=== PATIENT | male | born 1960 | race African-American/Black ===

== ENCOUNTER → 2016-10-21 | Outpatient (CLI) | payer OTHER ==
[2016-10-21 12:12] LABS: ABSOLUTE EOSINOPHILS # (AUTO) 0.1 10^3/uL (0.0-0.6); ABSOLUTE MONOCYTES (AUTO) 0.5 10^3/uL (0.1-1.4); ABSOLUTE NEUT (AUTO) 2.9 10^3/uL (1.7-8.2); BASOPHILS % (AUTO) 0.5 % (0-2); EOSINOPHILS % (AUTO) 2.6 % (0-6); HEMOGLOBIN 11.6 g/dL (13.5-17.0); HGB HCT DIFFERENCE -1.2; MEAN CORPUSCULAR HEMOGLOBIN 29.6 pg (27.0-33.4); MEAN CORPUSCULAR HGB CONC 32.3 g/dL (32.0-36.0); MEAN CORPUSCULAR VOLUME 92 fl (80-97); MONOCYTES % (AUTO) 8.6 % (3-13); RED BLOOD COUNT 3.93 10^6/uL (4.35-5.55); RED CELL DISTRIBUTION WIDTH 13.3 % (11.5-14.0); SEGMENTED NEUTROPHILS % (AUTO) 52.3 % (42-78); WHITE BLOOD COUNT 5.5 10^3/uL (4.0-10.5)
[2016-10-21 12:36] LABS: ALANINE AMINOTRANSFERASE 32 U/L (21-72); ALKALINE PHOSPHATASE 84 U/L (38-126); ANION GAP 11 (5-19); ASPARTATE AMINO TRANSFERASE 22 U/L (17-59); BILIRUBIN,TOTAL 0.6 mg/dL (0.2-1.3); BLOOD UREA NITROGEN 10 mg/dL (7-20); C-REACTIVE PROTEIN 8.6 mg/L (<10.0); CALCIUM 9.4 mg/dL (8.4-10.2); CARBON DIOXIDE 22 mmol/L (22-30); CHLORIDE 110 mmol/L (98-107); CREATININE RESULT 0.99 mg/dL (0.52-1.25); POTASSIUM 3.9 mmol/L (3.6-5.0); SODIUM 142.9 mmol/L (137-145); TOTAL PROTEIN 7.3 g/dL (6.3-8.2)
[2016-10-21 12:41] LABS: GLUCOSE 94 mg/dL (75-110)
[2016-10-21 13:02] LABS: ERYTHROCYTE SEDIMENTATION RATE 37 mm/hr (0-20)
== END ==
LOC: OD 11:34
PROVIDERS: ATTEND Orthopaedic Surgery
DX: T84.50XA Infection and inflammatory reaction due to unspecified internal joint prosthesis, initial encounter (principal); X58.XXXA Exposure to other specified factors, initial encounter; Y93.9 Activity, unspecified; Y92.9 Unspecified place or not applicable
CPT/HCPCS: 36415; 80053; 85025; 85652; 86140

== ENCOUNTER → 2016-10-31 | Outpatient (CLI) | payer OTHER | LOC: RAD 08:40 | PROVIDERS: ATTEND Orthopaedic Surgery | DX: Z96.642 Presence of left artificial hip joint (principal) | CPT/HCPCS: 78315; A9503; Q9969 ==

== ENCOUNTER 2018-08-15 08:51 | Inpatient (IN) | payer OTHER ==
[2018-08-15] MEDS ORDERED: PANTOPRAZOLE SODIUM 40 MG VIAL IV ONE (09:12)
[2018-08-15] MEDS ORDERED: PANTOPRAZOLE SODIUM 40 MG VIAL IV PRN (09:14)
[2018-08-15] MEDS ORDERED: NORMAL SALINE 1000 ML 1,000 ML IV ONE (09:17)
[2018-08-15 09:31] LABS: ABSOLUTE BASOPHILS # (AUTO) 0.1 10^3/uL (0.0-0.2); ABSOLUTE EOSINOPHILS # (AUTO) 0.1 10^3/uL (0.0-0.6); ABSOLUTE LYMPHOCYTES (AUTO) 1.6 10^3/uL (0.5-4.7); ABSOLUTE MONOCYTES (AUTO) 0.6 10^3/uL (0.1-1.4); ABSOLUTE NEUT (AUTO) 6.4 10^3/uL (1.7-8.2); BASOPHILS % (AUTO) 0.7 % (0-2); EOSINOPHILS % (AUTO) 1.1 % (0-6); HEMATOCRIT 32.6 % (37.9-51.0); MEAN CORPUSCULAR HEMOGLOBIN 30.6 pg (27.0-33.4); MEAN CORPUSCULAR HGB CONC 33.6 g/dL (32.0-36.0); MEAN CORPUSCULAR VOLUME 91 fl (80-97); MONOCYTES % (AUTO) 7.3 % (3-13); PLATELET COUNT 297 10^3/uL (150-450); RED BLOOD COUNT 3.58 10^6/uL (4.35-5.55); RED CELL DISTRIBUTION WIDTH 13.2 % (11.5-14.0); SEGMENTED NEUTROPHILS % (AUTO) 72.9 % (42-78); TOTAL CELLS COUNTED % (AUTO) 100 %; WHITE BLOOD COUNT 8.7 10^3/uL (4.0-10.5)
[2018-08-15 09:53] LABS: ALANINE AMINOTRANSFERASE 20 U/L (21-72); ALBUMIN 3.9 g/dL (3.5-5.0); ALKALINE PHOSPHATASE 75 U/L (38-126); ANION GAP 9 (5-19); ASPARTATE AMINO TRANSFERASE 31 U/L (17-59); BILIRUBIN,DIRECT 0.3 mg/dL (0.0-0.4); BILIRUBIN,TOTAL 0.4 mg/dL (0.2-1.3); BLOOD UREA NITROGEN 30 mg/dL (7-20); CALCIUM 8.8 mg/dL (8.4-10.2); CARBON DIOXIDE 22 mmol/L (22-30); CHLORIDE 112 mmol/L (98-107); GLUCOSE 81 mg/dL (75-110); POTASSIUM 4.4 mmol/L (3.6-5.0); SODIUM 143.4 mmol/L (137-145); TOTAL PROTEIN 7.4 g/dL (6.3-8.2)
--- NOTE | 2018-08-15 10:29 | RADIOLOGY REPORT (SQ) ---
EXAM DESCRIPTION: CHEST SINGLE VIEW COMPLETED DATE/TIME: 08/15/2018 10:18 am REASON FOR STUDY: near syncope COMPARISON: 08/24/2011 EXAM PARAMETERS: NUMBER OF VIEWS: One view. TECHNIQUE: Single frontal radiographic view of the chest acquired. RADIATION DOSE: NA LIMITATIONS: None. FINDINGS: LUNGS AND PLEURA: No opacities, masses or pneumothorax. No pleural effusion. MEDIASTINUM AND HILAR STRUCTURES: No masses. Contour normal. HEART AND VASCULAR STRUCTURES: Heart normal in size. Normal vasculature. BONES: Gentle scoliosis of the thoracolumbar spine HARDWARE: Partially imaged posterior cervical fusion hardware. OTHER: No other significant finding. IMPRESSION: No acute abnormality of the lungs in AP projection. TECHNICAL DOCUMENTATION: JOB ID: [id number] [employer]- All Rights Reserved Reading location - IP/workstation name: [id number]
--- NOTE | 2018-08-15 12:30 | ER Document Report ---
ED GI Bleed / Rectal Pain - General Stated Complaint: POSSIBLE GI BLEED Time Seen by Provider: 08/15/18 09:01 Mode of Arrival: Medic Information source: Patient Notes: Patient is a 57-year-old male comes emergency room via EMS with a near syncopal episode and a possible GI bleed. Patient states he had a tooth pulled yesterday and he was up this morning getting ready to rinse with salt water and bent over when he bent over the room started to spin and got lightheaded and sweaty and he had back into sit down and states it took him a good 15 minutes to get his bearings on what was going on and for him to grain picker his phone from the bathroom and call his in the living room. He stated that the room was spinning severely. And is never felt like this before. He had a bowel movement while EMS was there the EMS reports as approximately 4-500 cc of black maroonish bowel movement. Patient has a history of migraines and has a left- sided hip replacement that was placed in 2010. 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 He is scheduled to go to [place] 25 August to have surgery to rectify the infection that is present. He also mentions that when he was in college he had a bout of ulcers in his stomach. He denies taking any NSAIDs on a regular basis and denies any alcohol abuse. He does drink on special occasions and still within moderation. TRAVEL OUTSIDE OF THE [place] IN LAST 30 DAYS: No - HPI Patient complains to provider of: Dark red bld from rectum Onset: Just prior to arrival Timing/Duration: Sudden, Better Quality of pain: No pain Pain Level: 4 Dark Stools: Maroon, Black Rectal foreign body: No Rectal pain with intercourse: No Use of: denies: Warfarin, Plavix, ASA, Lovenox, Pradaxa, NSAIDS, ETOH Associated symptoms: Fainting/dizzy/lightheade. 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 Lives with: Family Family History: Reviewed & Not Pertinent Patient has suicidal ideation: No Patient has homicidal ideation: No - Past Medical History Cardiac Medical History: Denies: Hx Atrial Fibrillation, Hx Congestive Heart Failure, Hx Coronary Artery Disease, Hx Heart Attack, Hx Hypercholesterolemia, Hx Hypertension, Hx Peripheral Vascular Disease, Hx Pulmonary Embolism, Hx Heart Murmur Pulmonary Medical History: Denies: Hx Asthma, Hx Bronchitis, Hx COPD, Hx Pneumonia, Hx Respiratory Failure, Hx Sleep Apnea, Hx Tuberculosis Neurological Medical History: Denies: Hx Cerebrovascular Accident, Hx Seizures Endocrine Medical History: Denies: Hx Graves' Disease, Hx Hyperthyroidism, Hx Hypothyroidism Renal/ Medical History: Denies: Hx Benign Prostatic Hyperplasia, Hx End Stage Renal Disease, Hx Kidney Stones, Hx Peritoneal Dialysis Malignancy Medical History: Denies Hx Leukemia, Denies Hx Lung Cancer GI Medical History: Denies: Hx Crohn's Disease, Hx Gastroesophageal Reflux Disease, Hx Hiatal Hernia, Hx Irritable Bowel, Hx Liver Failure, Hx Pancreatitis , Hx Ulcer Musculoskeletal Medical History: Reports Hx Arthritis, Denies Hx Fibromyalgia, Denies Hx Multiple Sclerosis, Denies Hx Muscular Dystrophy Psychiatric Medical History: Denies: Hx Bipolar Disorder, Hx Dementia, Hx Depression, Hx Post Traumatic Stress Disorder, Hx Schizophrenia Traumatic Medical History: Denies: Hx Fractures Infectious Medical History: Denies: Hx HIV Past Surgical History: Denies: Hx Appendectomy, Hx Bowel Surgery, Hx Cholecystectomy, Hx Colostomy, Hx Coronary Artery Bypass Graft, Hx Gastric Bypass Surgery, Hx Herniorrhaphy, Hx Pacemaker, Hx Tonsillectomy - Immunizations Hx Diphtheria, Pertussis, Tetanus Vaccination: Yes Review of Systems - Review of Systems Constitutional: No symptoms reported EENT: No symptoms reported Cardiovascular: No symptoms reported Respiratory: No symptoms reported Gastrointestinal: See HPI, Black stools Genitourinary: No symptoms reported Male Genitourinary: No symptoms reported Musculoskeletal: No symptoms reported Skin: No symptoms reported Hematologic/Lymphatic: No symptoms reported Neurological/Psychological: See HPI, Other - Near syncope -: Yes All other systems reviewed and negative Physical Exam - Vital signs Vitals: Pulse Ox 100 08/15/18 08:54 Vital signs as of my dictation and not been entered in the computer yet however the orthostatics were mostly positive with him going from's laying down supine to standing up heart rate jumping over 20 bpm and a blood pressure not as significant but still he got lightheaded and dizzy. Patient's blood pressure after getting some fluids has been around the 112 120/77 Kurt and it fluctuates again I do not have those in front of me but they are relatively stable. With him laying perfectly still and there is systolic is about 107 208 and his diastolic is been running anywhere from the 50s to the 70s. Currently as of 435 on the monitor he is running 112/78 and heart rate running at 100. Interpretation: Hypotensive - Notes Notes: PHYSICAL EXAMINATION: GENERAL: Patient is a well-nourished well-developed 57-year-old male he is in no apparent distress on physical exam today. HEAD: Atraumatic, normocephalic. EYES: Pupils equal round and reactive to light, extraocular movements intact, sclera anicteric, conjunctiva are normal. ENT: Nares patent, oropharynx clear without exudates. Moist mucous membranes. NECK: Normal range of motion, supple without lymphadenopathy LUNGS: Breath sounds clear to auscultation bilaterally and equal. No wheezes rales or rhonchi. HEART: Regular rate and rhythm without murmurs ABDOMEN: Physical exam patient's abdomen shows he has bowel sounds all 4 quads. He is for the most part nontender although he has slight amount of tenderness midepigastric to moderate ballottement. There is no tympany noted. Musculoskeletal: Normal range of motion, no pitting or edema. No cyanosis. NEUROLOGICAL Normal speech, normal gait. Normal sensory, motor exams PSYCH: Normal mood, normal affect. SKIN: Warm, Dry, normal turgor, no rashes or lesions noted. Course - Re-evaluation Re-evalutation: 08/15/18 16:39 Patient had a positive guaiac done by me sent to the lab it was positive just by looking at it on my finger. However I discussed early on the possibility the patient may need to be transferred out since we do not have GI document control supervisor here. As I was discussing this with my attending I learned that our surgeon document control supervisor tonight do upper and lower endoscopies. It was suggested that I give them a call. I contacted Dr. Solorio and explained to him the situation and he said that if I could have medical admit and consult him that he would take patient to the OR in the morning and do an upper eat EGD. It was then that I learned that patient's primary was Dr. Cruz and I called for him and Dr. Elliott was covering. I informed Dr. Peralta that patient was here primarily for a GI bleed his hemoglobin hematocrit were stable I had talked to the surgeon and he was willing to accept the patient for an upper endoscopy tomorrow here at our hospital. Dr. Elliott said that he would be happy to admit the patient if the surgeon was going to be in-house in case the patient needed emergency intervention. I recontacted the surgeon Dr. Solorio who was headed down to the emergency room to see the patient in person and discuss it with him. Afterwards he informed me that patient would go tomorrow for an upper and lower endoscopy. And he will be in house tonight in case anything happens. So we have admitted the patient to Dr. Elliott's service consult to Dr. Solorio patient is very happy with the situation. - Vital Signs Vital signs: Temp Pulse Resp BP Pulse Ox 93 8 L 112/77 99 08/15/18 09:37 08/15/18 15:01 08/15/18 15:01 08/15/18 15:01 - Laboratory Result Diagrams: 08/15/18 16:00 08/15/18 09:13 Laboratory results interpreted by me: 08/15/18 08/15/18 09:13 09:13 RBC 3.58 L Hgb 11.0 L Hct 32.6 L Chloride 112 H BUN 30 H ALT 20 L Discharge - Discharge Clinical Impression: Upper GI bleeding Condition: Stable Disposition: ADMITTED INPATIENT Admitting Provider: Anthony Unit Admitted: ICU
--- NOTE | 2018-08-15 15:46 | EKG REPORT ---
SEVERITY:- NORMAL ECG - SINUS RHYTHM : Confirmed by: Natalie Sofia MD 15-Aug-2018 15:45:19
[2018-08-15 16:14] LABS: HEMATOCRIT 31.5 % (37.9-51.0); HEMOGLOBIN 10.5 g/dL (13.5-17.0); MEAN CORPUSCULAR HEMOGLOBIN 30.2 pg (27.0-33.4); MEAN CORPUSCULAR HGB CONC 33.4 g/dL (32.0-36.0); MEAN CORPUSCULAR VOLUME 90 fl (80-97); PLATELET COUNT 280 10^3/uL (150-450); RED BLOOD COUNT 3.49 10^6/uL (4.35-5.55); RED CELL DISTRIBUTION WIDTH 13.2 % (11.5-14.0); WHITE BLOOD COUNT 8.7 10^3/uL (4.0-10.5)
[2018-08-15] MEDS: NORMAL SALINE 1000 ML 1,000 ML IV PRN (17:35)
[2018-08-15] MEDS ORDERED: BISACODYL 5 MG TABEC PO ONE (17:44)
--- NOTE | 2018-08-15 18:08 | PDOC CONSULTATION ---
Consultation Consult Date: 08/15/18 Consult reason:: GI bleeding History of Present Illness Admission Date/PCP: 08/15/18 15:12 AHSAN MORAN MD History of Present Illness: EUSEBIO CAMPOS is a 57 year old male seen at the request of Dr. Elliott. The pt has a long cardiac history, as well as an infected hip prosthesis. He was diagnosed with a gastric ulcer as a child and has taken PPI's and Zantac intermittently. He reports 2 dark, black BM's today. He denies hematemesis. No nausea, no vomiting. He reports mild colicky abdominal pain. His last colonoscopy was more than 3 years ago. He denies CP, SOB, F/C, dizziness, orthostasis, blurry vision, ZAMORA. He takes NSAID's only intermittently, approximately once per week. He denies nicotine use and excessive caffeine consumption. He drinks alcohol once or twice per year. Past Medical History Cardiac Medical History: Denies: Atrial Fibrillation, Congestive Heart Failure, Coronary Artery Disease, Myocardial Infarction, Hyperlipidema, Hypertension, Peripheral Vascular Disease, Pulmonary Embolism, Heart Murmur Pulmonary Medical History: Denies: Asthma, Bronchitis, Chronic Obstructive Pulmonary Disease (COPD), Pneumonia, Respiratory Failure, Sleep Apnea, Tuberculosis Neurological Medical History: Denies: Seizures Endocrine Medical History: Denies: Hyperthyroidism, Hypothyroidism Renal/ Medical History: Denies: End Stage Renal Disease Malignancy Medical History: Denies: Leukemia, Lung Cancer GI Medical History: Denies: Crohn's Disease, Gastroesophageal Reflux Disease, Hiatal Hernia Musculoskeltal Medical History: Reports: Arthritis Denies: Fibromyalgia Psychiatric Medical History: Denies: Bipolar Disorder, Dementia, Depression, Post Traumatic Stress Disorder Hematology: Denies: Anemia, Hemophilia, Sickle Cell Disease Infectious Medical History: Denies: HIV Past Surgical History Past Surgical History: Denies: Appendectomy, Cholecystectomy, Colostomy, Coronary Artery Bypass Graft, Gastric Bypass Surgery, Herniorrhaphy, Pacemaker, Tonsillectomy Social History Lives with: Family Smoking Status: Never Smoker Frequency of Alcohol Use: Rare - once or twice per year Hx Recreational Drug Use: No Drugs: None Hx Prescription Drug Abuse: No - Advance Directive Resuscitation Status: Full Code Family History Family History: Reviewed & Not Pertinent Parental Family History Reviewed: Yes Children Family History Reviewed: Yes Sibling(s) Family History Reviewed.: Yes Medication/Allergy Home Medications: Acetaminophen with Codeine [Tylenol with Codeine #3 Tablet] 1 each PO Q4H PRN Ibuprofen [Motrin 800 mg Tablet] 800 mg PO Q8H PRN 08/15/18 Sulfamethoxazole/Trimethoprim [Bactrim Ds Tablet] 1 each PO DAILY 08/15/18 Topiramate 1 tab PO BID 08/15/18 Allergies/Adverse Reactions: aspirin Adverse Reaction (Verified 08/15/18 09:44) Review of Systems Constitutional: ABSENT: anorexia, chills, fatigue Eyes: ABSENT: visual disturbances Ears: ABSENT: hearing changes Nose, Mouth, and Throat: ABSENT: sore throat Cardiovascular: ABSENT: chest pain, palpitations Respiratory: ABSENT: cough, dyspnea Gastrointestinal: PRESENT: abdominal pain - mild, intermittent, melena. ABSENT : hematemesis, nausea, vomiting Musculoskeletal: ABSENT: back pain Integumentary: ABSENT: pruritus, rash Neurological: ABSENT: abnormal speech, confusion, convulsions, dizziness Psychiatric: ABSENT: anxiety, depression Endocrine: ABSENT: cold intolerance, heat intolerance Hematologic/Lymphatic: ABSENT: easy bleeding, easy bruising Physical Exam Vital Signs: Temp Pulse Resp BP Pulse Ox 98.3 F 96 14 101/62 100 08/15/18 17:05 08/15/18 17:05 08/15/18 17:05 08/15/18 17:05 08/15/18 17:05 Intake & Output 08/14/18 08/15/18 08/16/18 06:59 06:59 06:59 Weight 111.4 kg General appearance: PRESENT: no acute distress Head exam: PRESENT: atraumatic, normocephalic Eye exam: PRESENT: EOMI, PERRLA. ABSENT: scleral icterus Mouth exam: ABSENT: neck supple Neck exam: ABSENT: meningismus, tenderness, thyromegaly, tracheal deviation Respiratory exam: PRESENT: clear to auscultation elliott, unlabored. ABSENT: chest wall tenderness, tachypnea, wheezes Cardiovascular exam: PRESENT: RRR Pulses: PRESENT: normal radial pulses Vascular exam: PRESENT: normal capillary refill. ABSENT: pallor GI/Abdominal exam: PRESENT: soft. ABSENT: distended, firm, guarding, rigid, tenderness Rectal exam: PRESENT: deferred Extremities exam: ABSENT: clubbing Musculoskeletal exam: ABSENT: deformity Neurological exam: PRESENT: alert, awake, oriented to person, oriented to place , oriented to time, oriented to situation, CN II-XII grossly intact Psychiatric exam: ABSENT: agitated, anxious, depressed Focused psych exam: ABSENT: delusional Skin exam: ABSENT: cyanosis, erythema, jaundice Results Laboratory Results: 08/15/18 16:00 08/15/18 16:00 WBC 8.7 RBC 3.49 L Hgb 10.5 L Hct 31.5 L MCV 90 MCH 30.2 MCHC 33.4 RDW 13.2 Plt Count 280 Impressions: Chest X-Ray 08/15/18 09:17 IMPRESSION: No acute abnormality of the lungs in AP projection. Assessment & Plan - Diagnosis (1) GI bleeding Qualifiers: GI bleed type/associated pathology: unspecified gastrointestinal hemorrhage type Qualified Code(s): K92.2 - Gastrointestinal hemorrhage, unspecified Is this a current diagnosis for this admission?: Yes - Plan Summary Plan Summary: 57 y/o M with GI bleeing. It is likely proximal, but the pt denies any hematemesis. The pt has not had a colonoscopy in >3 years. I have discussed options with the pt at length. He is hemodynamically stable at this time. he wishes to undergo EGD and colonoscopy this admission to identify the source of his anemia. This is a reasonable approach. Will perform a bowel prep tonight and plan for EGD and colonoscopy once he is clear. If life-threatening hemorrhage occurs, he may require urgent intervention. I will follow the pt closely with you.
[2018-08-15] MEDS ORDERED: POLYETHYLENE GLYCOL 3350 POWDER 17 GM/1 PACKET PO ONE (19:00)
--- NOTE | 2018-08-15 20:12 | PDOC H&P ---
History of Present Illness Admission Date/PCP: 08/15/18 15:12 ELOY MORAN MD Patient complains of: Dizziness, vertigo, altered mental status, tarry stool History of Present Illness: EUSEBIO CAMPOS is a 57 year old male of Dr Eloy Moran who was brought to the ED via EMS service with complains of dizziness, lightheadedness, vertigo like feeling and disorientation that lasted about 15 minutes and started upon his change in position in his bathroom earlier this morning. Patient reported that he was eventually able to alert his upon his recovery in the bathroom. He subsequently had a tarry/maroon like bowel movement which EMS personnel quantify as about 400-500 cc in volume. He denied any diarrhea, nausea or vomiting. Patient admitted to associated abdominal pain in his epigastric region. He admitted to use of Ibuprofen on fairly regular basis for left hip pain management. he has longstanding history of pep ulcer disease since his college years. he denied any significant alcohol ingestion or cigarette smoking. He demonstrate hypotension with tachycardia upon presentation to the ED necessitating IV fluid resuscitation. His morbidities include PUD, arthritis with infected left hip prosthesis and migraine headache. he was advised hospitalization for further evaluation and management. He was seen in consultation while in the ED by Dr. Markus Solorio, on duty surgeon, who recommended endoscopic evaluation at this facility within next 24 hours. Past Medical History Cardiac Medical History: Denies: Atrial Fibrillation, Congestive Heart Failure, Coronary Artery Disease, Myocardial Infarction, Hyperlipidema, Hypertension, Peripheral Vascular Disease, Pulmonary Embolism, Heart Murmur Pulmonary Medical History: Denies: Asthma, Bronchitis, Chronic Obstructive Pulmonary Disease (COPD), Pneumonia, Respiratory Failure, Sleep Apnea, Tuberculosis Neurological Medical History: Denies: Seizures Endocrine Medical History: Denies: Hyperthyroidism, Hypothyroidism Renal/ Medical History: Denies: End Stage Renal Disease Malignancy Medical History: Denies: Leukemia, Lung Cancer GI Medical History: Denies: Crohn's Disease, Gastroesophageal Reflux Disease, Hiatal Hernia Musculoskeltal Medical History: Reports: Arthritis Denies: Fibromyalgia Psychiatric Medical History: Denies: Bipolar Disorder, Dementia, Depression, Post Traumatic Stress Disorder Hematology: Denies: Anemia, Hemophilia, Sickle Cell Disease Infectious Medical History: Denies: HIV Past Surgical History Past Surgical History: Denies: Appendectomy, Cholecystectomy, Colostomy, Coronary Artery Bypass Graft, Gastric Bypass Surgery, Herniorrhaphy, Pacemaker, Tonsillectomy Social History Lives with: Family Smoking Status: Never Smoker Frequency of Alcohol Use: Rare - once or twice per year Hx Recreational Drug Use: No Drugs: None Hx Prescription Drug Abuse: No - Advance Directive Resuscitation Status: Full Code Family History Family History: Reviewed & Not Pertinent Parental Family History Reviewed: Yes Children Family History Reviewed: Yes Sibling(s) Family History Reviewed.: Yes Medication/Allergy Home Medications: Acetaminophen with Codeine [Tylenol with Codeine #3 Tablet] 1 each PO Q4H PRN Ibuprofen [Motrin 800 mg Tablet] 800 mg PO Q8H PRN 08/15/18 Sulfamethoxazole/Trimethoprim [Bactrim Ds Tablet] 1 each PO DAILY 08/15/18 Topiramate 1 tab PO BID 08/15/18 Allergies/Adverse Reactions: aspirin Adverse Reaction (Verified 08/15/18 09:44) Review of Systems Constitutional: ABSENT: chills, fever(s), headache(s), weight gain, weight loss Eyes: ABSENT: visual disturbances Ears: ABSENT: hearing changes Nose, Mouth, and Throat: ABSENT: as per HPI, headache(s), mouth pain, sore throat, vertigo, other Cardiovascular: ABSENT: chest pain, dyspnea on exertion, edema, orthropnea, palpitations Respiratory: ABSENT: cough, hemoptysis Gastrointestinal: PRESENT: abdominal pain - epigastric region, melena Genitourinary: ABSENT: dysuria, hematuria Musculoskeletal: ABSENT: joint swelling Integumentary: ABSENT: rash, wounds Neurological: ABSENT: abnormal gait, abnormal speech, confusion, dizziness, focal weakness, syncope Psychiatric: ABSENT: anxiety, depression, homidical ideation, suicidal ideation Endocrine: ABSENT: cold intolerance, heat intolerance, polydipsia, polyuria Hematologic/Lymphatic: ABSENT: easy bleeding, easy bruising, lymphadenopathy Allergic/Immunologic: ABSENT: seasonal rhinorrhea Physical Exam Vital Signs: Temp Pulse Resp BP Pulse Ox 98.3 F 96 21 H 112/81 100 08/15/18 17:05 08/15/18 17:05 08/15/18 18:08 08/15/18 18:08 08/15/18 18:08 Intake & Output 08/14/18 08/15/18 08/16/18 06:59 06:59 06:59 Weight 111.4 kg General appearance: PRESENT: no acute distress Head exam: PRESENT: atraumatic, normocephalic Eye exam: PRESENT: conjunctiva pink, EOMI, PERRLA. ABSENT: scleral icterus Ear exam: PRESENT: normal external ear exam Mouth exam: PRESENT: moist Neck exam: PRESENT: full ROM. ABSENT: carotid bruit, JVD, lymphadenopathy, thyromegaly Respiratory exam: PRESENT: clear to auscultation elliott Cardiovascular exam: PRESENT: RRR. ABSENT: diastolic murmur, rubs, systolic murmur Pulses: PRESENT: normal dorsalis pedis pul, +2 pedal pulses bilateral GI/Abdominal exam: PRESENT: normal bowel sounds, soft, tenderness - epigastric region to deep palpation. ABSENT: distended, guarding, mass, organolmegaly, rebound Rectal exam: PRESENT: heme (+) stool Extremities exam: ABSENT: pedal edema Musculoskeletal exam: PRESENT: deformity - related to multiple joint involvement with arthritis Neurological exam: PRESENT: alert, awake, oriented to person, oriented to place , oriented to time, oriented to situation, CN II-XII grossly intact. ABSENT: motor sensory deficit Psychiatric exam: PRESENT: appropriate affect, normal mood. ABSENT: homicidal ideation, suicidal ideation Skin exam: PRESENT: dry, intact, warm. ABSENT: cyanosis, rash Results Laboratory Results: 08/15/18 16:00 08/15/18 16:00 WBC 8.7 RBC 3.49 L Hgb 10.5 L Hct 31.5 L MCV 90 MCH 30.2 MCHC 33.4 RDW 13.2 Plt Count 280 Impressions: Chest X-Ray 08/15/18 09:17 IMPRESSION: No acute abnormality of the lungs in AP projection. Assessment & Plan - Diagnosis (1) GI bleeding Qualifiers: GI bleed type/associated pathology: unspecified gastrointestinal hemorrhage type Qualified Code(s): K92.2 - Gastrointestinal hemorrhage, unspecified Is this a current diagnosis for this admission?: Yes Plan: Admit to ICU. Maintain on IV Protonix 40 mg [id number] after completion of initial bolus of 80 mg x 1 dose. Monitor serial CBC for any need of PRBC transfusion. Patient is schedule for EGD and colonoscopy by Dr Solorio within next 24 hours if clinically stable for the procedure. (2) Anemia due to acute blood loss Is this a current diagnosis for this admission?: Yes Plan: Monitor CBC indices for any indication of need to transfuse blood. (3) PUD (peptic ulcer disease) Is this a current diagnosis for this admission?: Yes Plan: I had extensive discussion with patient regarding use of NSAID with his history of PUD and increase risk of bleeding as well as gastric perforation from ulcer along with other NSAID side effects include NSAID nephropathy and hypertension. Continue IV Protonix therapy pending EGD findings. (4) Postural dizziness Is this a current diagnosis for this admission?: Yes Plan: Maintain on IV saline infusion for maintain adequate blood pressure level. (5) Positional vertigo Is this a current diagnosis for this admission?: Yes Plan: Continue IV saline infusion to maintain adequate blood pressure level. His is current free of vertigo symptoms. (6) Infected prosthesis of left hip Qualifiers: Encounter type: subsequent encounter Qualified Code(s): T84.52XD - Infection and inflammatory reaction due to internal left hip prosthesis, subsequent encounter Is this a current diagnosis for this admission?: Yes Plan: We will continue on Bactrim DS 1 tablet po daily therapy as schedule preadmission. Patient is on schedule for possible left hip prosthesis removal in August, at [facility]. (7) Migraine headache Qualifiers: Migraine type: unspecified Status migrainosus presence: without status migrainosus Intractability: not intractable Qualified Code(s): G43.909 - Migraine, unspecified, not intractable, without status migrainosus Is this a current diagnosis for this admission?: Yes Plan: Continue on his preadmission Topiramate therapy upon resumption of oral feeding. - Time Time Spent: 50 to 70 Minutes Medications reviewed and adjusted accordingly: Yes Anticipated discharge: Home Within: Other - Inpatient Certification Based on my medical assessment, after consideration of the patient's comorbidities, presenting symptoms, or acuity I expect that the services needed warrant INPATIENT care.: Yes I certify that my determination is in accordance with my understanding of Medicare's requirements for reasonable and necessary INPATIENT services [42 CFR 412.3e].: Yes Medical Necessity: Need Close Monitoring Due to Risk of Patient Decompensation, Need For IV Fluids, Need For Continuous Telemetry Monitoring, Need for Surgery, Risk of Complication if Not Cared For in Hospital 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 I discuss care plan with patient and spouse at bedside and they are in agreement.
[2018-08-15 21:11] LABS: ABSOLUTE BASOPHILS # (AUTO) 0.1 10^3/uL (0.0-0.2); ABSOLUTE EOSINOPHILS # (AUTO) 0.1 10^3/uL (0.0-0.6); ABSOLUTE LYMPHOCYTES (AUTO) 3.2 10^3/uL (0.5-4.7); ABSOLUTE MONOCYTES (AUTO) 0.6 10^3/uL (0.1-1.4); ABSOLUTE NEUT (AUTO) 5.2 10^3/uL (1.7-8.2); BASOPHILS % (AUTO) 0.8 % (0-2); EOSINOPHILS % (AUTO) 1.3 % (0-6); HEMATOCRIT 31.5 % (37.9-51.0); HEMOGLOBIN 10.7 g/dL (13.5-17.0); LYMPHOCYTES % (AUTO) 34.4 % (13-45); MEAN CORPUSCULAR HEMOGLOBIN 30.7 pg (27.0-33.4); MEAN CORPUSCULAR HGB CONC 34.1 g/dL (32.0-36.0); MEAN CORPUSCULAR VOLUME 90 fl (80-97); MONOCYTES % (AUTO) 6.2 % (3-13); PLATELET COUNT 291 10^3/uL (150-450); RED CELL DISTRIBUTION WIDTH 13.3 % (11.5-14.0); SEGMENTED NEUTROPHILS % (AUTO) 57.3 % (42-78); TOTAL CELLS COUNTED % (AUTO) 100 %; WHITE BLOOD COUNT 9.2 10^3/uL (4.0-10.5)
[2018-08-16] MEDS: PANTOPRAZOLE SODIUM 40 MG VIAL IV SCH ×2 (00:15→09:14)
[2018-08-16 01:24] LABS: ABSOLUTE BASOPHILS # (AUTO) 0.1 10^3/uL (0.0-0.2); ABSOLUTE EOSINOPHILS # (AUTO) 0.1 10^3/uL (0.0-0.6); ABSOLUTE LYMPHOCYTES (AUTO) 2.7 10^3/uL (0.5-4.7); ABSOLUTE MONOCYTES (AUTO) 0.6 10^3/uL (0.1-1.4); ABSOLUTE NEUT (AUTO) 6.3 10^3/uL (1.7-8.2); BASOPHILS % (AUTO) 0.8 % (0-2); EOSINOPHILS % (AUTO) 1.3 % (0-6); HEMATOCRIT 29.7 % (37.9-51.0); HEMOGLOBIN 10.1 g/dL (13.5-17.0); LYMPHOCYTES % (AUTO) 27.5 % (13-45); MEAN CORPUSCULAR HEMOGLOBIN 30.5 pg (27.0-33.4); MEAN CORPUSCULAR HGB CONC 33.9 g/dL (32.0-36.0); MEAN CORPUSCULAR VOLUME 90 fl (80-97); MONOCYTES % (AUTO) 6.2 % (3-13); PLATELET COUNT 277 10^3/uL (150-450); RED BLOOD COUNT 3.31 10^6/uL (4.35-5.55); RED CELL DISTRIBUTION WIDTH 13.2 % (11.5-14.0); SEGMENTED NEUTROPHILS % (AUTO) 64.2 % (42-78); TOTAL CELLS COUNTED % (AUTO) 100 %; WHITE BLOOD COUNT 9.8 10^3/uL (4.0-10.5)
[2018-08-16] MEDS: NORMAL SALINE 1000 ML 1,000 ML IV PRN (05:10)
--- NOTE | 2018-08-16 08:48 | PDOC PROGRESS REPORT ---
Subjective Progress Note for:: 08/16/18 Subjective:: Feels okay. Tolerated bowel prep. Brown nonbloody output recently. No abdominal pain. Reason For Visit: GI BLEED Physical Exam Vital Signs: Temp Pulse Resp BP Pulse Ox 98.2 F 101 H 16 121/80 100 08/16/18 08:00 08/16/18 05:05 08/16/18 06:36 08/16/18 06:36 08/16/18 06:36 Intake & Output 08/15/18 08/16/18 08/17/18 06:59 06:59 06:59 Intake Total 3280 Output Total 1900 Balance 1380 Weight 110.6 kg General appearance: PRESENT: no acute distress, cooperative Respiratory exam: PRESENT: clear to auscultation elliott Cardiovascular exam: PRESENT: RRR GI/Abdominal exam: PRESENT: other - Soft, nondistended, nontender to palpation. Results Laboratory Results: 08/16/18 01:14 08/15/18 08/15/18 08/16/18 16:00 21:00 01:14 WBC 8.7 9.2 9.8 RBC 3.49 L 3.50 L 3.31 L Hgb 10.5 L 10.7 L 10.1 L Hct 31.5 L 31.5 L 29.7 L MCV 90 90 90 MCH 30.2 30.7 30.5 MCHC 33.4 34.1 33.9 RDW 13.2 13.3 13.2 Plt Count 280 291 277 Seg Neutrophils % 57.3 64.2 Lymphocytes % 34.4 27.5 Monocytes % 6.2 6.2 Eosinophils % 1.3 1.3 Basophils % 0.8 0.8 Absolute Neutrophils 5.2 6.3 Absolute Lymphocytes 3.2 2.7 Absolute Monocytes 0.6 0.6 Absolute Eosinophils 0.1 0.1 Absolute Basophils 0.1 0.1 Impressions: Chest X-Ray 08/15/18 09:17 IMPRESSION: No acute abnormality of the lungs in AP projection. Assessment & Plan - Diagnosis (1) GI bleeding Qualifiers: GI bleed type/associated pathology: unspecified gastrointestinal hemorrhage type Qualified Code(s): K92.2 - Gastrointestinal hemorrhage, unspecified Is this a current diagnosis for this admission?: Yes Plan: Appears to have stopped. Tolerated bowel prep well. Will proceed with upper and lower endoscopy. I have discussed with the patient the risk and benefits of the procedure including risk of intestinal injury and bleeding. Patient understands and agrees to proceed.
--- NOTE | 2018-08-16 10:39 | Operative Report ---
Operative Report DATE OF SURGERY: 08/16/18 PREOPERATIVE DIAGNOSIS: Gastrointestinal bleed POSTOPERATIVE DIAGNOSIS: Gastritis, duodenal ulcer. OPERATION: Esophagogastroduodenoscopy with biopsies. Colonoscopy. SURGEON: LYRIC MARIE ANESTHESIA: Moderate Sedation TISSUE REMOVED OR ALTERED: Antral biopsy for H. pylori. Gastric fundic biopsy. COMPLICATIONS: None ESTIMATED BLOOD LOSS: Minimal INTRAOPERATIVE FINDINGS: About 3 cm region of gastric fundus with mucosal thickening but no true mass. Small amount of blood overlying this region but no active bleeding. Shallow small ulcer at the junction between the first and second portion the duodenum with no visible vessel and no adherent clot. Normal -appearing colon PROCEDURE: Informed consent was obtained. Procedure was done under moderate sedation in the intensive care unit. IV sedation with Versed and fentanyl was administered. Endoscope was passed via the patient's mouth into the second portion the duodenum. At the junction of the first and second portion the duodenum there was a shallow ulcer with some mucosal edema around it but no fresh clot no visible vessel. With the edema around it I could not visualize the base of the ulcer. There was a small amount of blood around this area. The gastric mucosa appeared normal other than a 3-4 cm patch of gastric mucosal thickening in the gastric fundus with a small amount of blood around this area but no active bleeding. This area of mucosal thickening was biopsied multiple times. Grossly it was not suspicious for malignancy. Random antral biopsy was taken for H. pylori as well. The stomach was desufflated. Esophagus appeared normal. Patient was repositioned. Digital rectal exam revealed no palpable perianal masses. Endoscope was passed via the patient's anus it was fed to the cecum. There was moderate amount of brownish fluid throughout the colon which required irrigation and aspiration to obtain adequate visualization. Although the bowel prep was not perfect guide was adequate. The cecum, right colon, transverse colon, descending colon, sigmoid colon, and the rectum were all normal with no masses and no ulcerations and no bleeding. Patient tolerated procedure well with no apparent complications. Assessment: Normal-appearing colon. His episode of gastrointestinal bleeding likely due to his duodenal ulcer. With the appearance of the ulcer now I think he is at low risk for recurrent bleeding as long as we keep him on proton pump inhibitor and avoid alcohol and NSAIDs. Patient may be transferred to the floor with discharge to home if he does well with a diet today with a stable hematocrit in the morning. He needs to follow-up at [facility] next week to follow-up on his biopsy results and to make sure he is not H. pylori positive.
[2018-08-16] MEDS ORDERED: ONDANSETRON HCL INJ/PF 4 MG/2 ML SDV ONE (10:49)
[2018-08-16] MEDS ORDERED: NALOXONE HCL INJ/PF 0.4 MG/1 ML SDV ONE (10:49)
[2018-08-16] MEDS ORDERED: GLUCAGON,HUMAN RECOMB 1 MG INJ ONE (10:50)
[2018-08-16] MEDS ORDERED: FLUMAZENIL INJ 0.5 MG/5 ML VIAL ONE (10:50)
[2018-08-16] MEDS ORDERED: EPINEPHRINE INJ 1 MG/10 ML DISP.SYRIN ONE (10:50)
--- NOTE | 2018-08-16 15:35 | PDOC PROGRESS REPORT ---
Subjective Progress Note for:: 08/16/18 Subjective:: He denied any chest pain or difficulty with breathing. No nausea or vomiting. Minimal persistent epigastric region discomfort. Tolerating full liquid diet. No fever or chills. Reason For Visit: GI BLEED Physical Exam Vital Signs: Temp Pulse Resp BP Pulse Ox 98.2 F 83 15 101/65 100 08/16/18 14:00 08/16/18 10:40 08/16/18 14:00 08/16/18 13:40 08/16/18 14:00 Intake & Output 08/15/18 08/16/18 08/17/18 06:59 06:59 06:59 Intake Total 3280 400 Output Total 1900 1150 Balance 1380 -750 Weight 110.6 kg General appearance: PRESENT: no acute distress, well-developed, well-nourished Head exam: PRESENT: atraumatic, normocephalic Eye exam: PRESENT: conjunctiva pink, EOMI, PERRLA. ABSENT: scleral icterus Ear exam: PRESENT: normal external ear exam Mouth exam: PRESENT: moist Respiratory exam: PRESENT: clear to auscultation elliott Cardiovascular exam: PRESENT: RRR. ABSENT: diastolic murmur, rubs, systolic murmur Vascular exam: ABSENT: pallor GI/Abdominal exam: PRESENT: normal bowel sounds, soft, tenderness - epigastric region to deep palpation. ABSENT: distended, guarding, mass, organolmegaly, rebound Extremities exam: ABSENT: pedal edema Neurological exam: PRESENT: alert, awake, oriented to person, oriented to place , oriented to time, oriented to situation, CN II-XII grossly intact. ABSENT: motor sensory deficit Psychiatric exam: PRESENT: appropriate affect, normal mood. ABSENT: homicidal ideation, suicidal ideation Skin exam: PRESENT: dry, intact, warm. ABSENT: cyanosis, rash Results Laboratory Results: 08/16/18 01:14 08/15/18 08/15/18 08/16/18 16:00 21:00 01:14 WBC 8.7 9.2 9.8 RBC 3.49 L 3.50 L 3.31 L Hgb 10.5 L 10.7 L 10.1 L Hct 31.5 L 31.5 L 29.7 L MCV 90 90 90 MCH 30.2 30.7 30.5 MCHC 33.4 34.1 33.9 RDW 13.2 13.3 13.2 Plt Count 280 291 277 Seg Neutrophils % 57.3 64.2 Lymphocytes % 34.4 27.5 Monocytes % 6.2 6.2 Eosinophils % 1.3 1.3 Basophils % 0.8 0.8 Absolute Neutrophils 5.2 6.3 Absolute Lymphocytes 3.2 2.7 Absolute Monocytes 0.6 0.6 Absolute Eosinophils 0.1 0.1 Absolute Basophils 0.1 0.1 Impressions: Chest X-Ray 08/15/18 09:17 IMPRESSION: No acute abnormality of the lungs in AP projection. Assessment & Plan - Diagnosis (1) GI bleeding Qualifiers: GI bleed type/associated pathology: unspecified gastrointestinal hemorrhage type Qualified Code(s): K92.2 - Gastrointestinal hemorrhage, unspecified Is this a current diagnosis for this admission?: Yes (2) Anemia due to acute blood loss Is this a current diagnosis for this admission?: Yes (3) PUD (peptic ulcer disease) Is this a current diagnosis for this admission?: Yes (4) Postural dizziness Is this a current diagnosis for this admission?: Yes (5) Positional vertigo Is this a current diagnosis for this admission?: Yes (6) Infected prosthesis of left hip Qualifiers: Encounter type: subsequent encounter Qualified Code(s): T84.52XD - Infection and inflammatory reaction due to internal left hip prosthesis, subsequent encounter Is this a current diagnosis for this admission?: Yes (7) Migraine headache Qualifiers: Migraine type: unspecified Status migrainosus presence: without status migrainosus Intractability: not intractable Qualified Code(s): G43.909 - Migraine, unspecified, not intractable, without status migrainosus Is this a current diagnosis for this admission?: Yes - Time Time Spent with patient: 25-34 minutes Medications reviewed and adjusted accordingly: Yes Anticipated discharge: Home Within: Other - Inpatient Certification Based on my medical assessment, after consideration of the patient's comorbidities, presenting symptoms, or acuity I expect that the services needed warrant INPATIENT care.: Yes I certify that my determination is in accordance with my understanding of Medicare's requirements for reasonable and necessary INPATIENT services [42 CFR 412.3e].: Yes Medical Necessity: Need Close Monitoring Due to Risk of Patient Decompensation, Need For IV Fluids, Need For Continuous Telemetry Monitoring, Need for Surgery, Risk of Complication if Not Cared For in Hospital Post Hospital Care: D/C Surgery Nurse Documentation - Plan Summary Plan Summary: D/C IV protonix from tomorrow am. Start on Prevacid 30 mg po bid x 2 weeks and thereafter daily. I did discussed with him need for repeat EGD after 8 weeks of PPI treatment. follow up on biopsy report for H.pylori exclusion. Advance diet as tolerated. down grade to medical floor.
[2018-08-16] MEDS ORDERED: TOPIRAMATE PO SCH (18:00)
[2018-08-16] MEDS ORDERED: ACETAMINOPHEN 325 MG TABLET ONE (21:31)
[2018-08-16] MEDS: TOPIRAMATE 25 MG TABLET PO SCH (21:33)
[2018-08-16] MEDS ORDERED: ACETAMINOPHEN 325 MG TABLET PO PRN (21:56)
[2018-08-17] MEDS ORDERED: LANSOPRAZOLE 30 MG TAB.RAP.DR PO SCH (06:00)
[2018-08-17] MEDS: TOPIRAMATE 25 MG TABLET PO SCH (09:24)
[2018-08-17] MEDS ORDERED: SULFAMETHOXAZOLE/TRIMETHOPRIM 800-160 MG TABLET PO SCH (10:00)
[2018-08-17 11:54] VITALS: BP 110/61
--- NOTE | 2018-08-17 12:03 | PDOC PROGRESS REPORT ---
Subjective Progress Note for:: 08/17/18 Subjective:: Feels well with no problems. No blood per rectum. No melena. Tolerating a diet well. No abdominal pain. Reason For Visit: ACUTE GI BLEED, ANEMIA OF ACUTE BLOOD LOSS WITH Physical Exam Vital Signs: Temp Pulse Resp BP Pulse Ox 100.0 F 84 20 110/61 99 08/17/18 10:00 08/17/18 10:00 08/17/18 10:00 08/17/18 10:00 08/17/18 10:00 Intake & Output 08/16/18 08/17/18 08/18/18 06:59 06:59 06:59 Intake Total 3280 2200 Output Total 1900 3025 Balance 1380 -825 Weight 110.6 kg 110.9 kg General appearance: PRESENT: no acute distress, cooperative GI/Abdominal exam: PRESENT: other - Soft, nondistended, nontender to palpation. Results Laboratory Results: 08/16/18 01:14 Impressions: Chest X-Ray 08/15/18 09:17 IMPRESSION: No acute abnormality of the lungs in AP projection. Assessment & Plan - Diagnosis (1) GI bleeding Qualifiers: GI bleed type/associated pathology: unspecified gastrointestinal hemorrhage type Qualified Code(s): K92.2 - Gastrointestinal hemorrhage, unspecified Is this a current diagnosis for this admission?: Yes Plan: Due to duodenal ulcer. Pending pathology report for H. pylori. No evidence of recurrent bleed. And with the appearance on endoscopy unlikely to rebleed with appropriate medications. May discharge patient home when okay with primary physician. Discharge patient home with Prevacid twice a day. Follow-up at [facility] this week to go over the biopsy results and to arrange follow-up. I have discussed with the patient the vital importance of avoiding alcohol and NSAIDs and the importance of staying on his proton pump inhibitor.
--- NOTE | 2018-08-17 14:43 | PDOC DISCHARGE SUMMARY ---
General - Admit/Disc Date/PCP Admission Date/Primary Care Provider: 08/15/18 15:12 AHSAN MORAN MD Discharge Date: 08/17/18 - Discharge Diagnosis (1) GI bleeding Is this a current diagnosis for this admission?: Yes Summary: Due to the duodenal ulcer currently PPI twice a day for 2 weeks follow-up with the Hospital surgical for repeat endoscopy and avoid all NSAID (2) Infected prosthesis of left hip Is this a current diagnosis for this admission?: Yes Summary: This is scheduled to the [facility] for the procedures (3) Migraine headache Is this a current diagnosis for this admission?: Yes Summary: Continue Topamax (4) PUD (peptic ulcer disease) Is this a current diagnosis for this admission?: Yes Summary: Continues to PPI twice a day - Additional Information Resuscitation Status: Full Code Discharge Diet: As Tolerated, Regular Discharge Activity: Activity As Tolerated Prescriptions: Omeprazole 40 mg PO BID #60 capsule. Home Medications: Acetaminophen with Codeine [Tylenol with Codeine #3 Tablet] 1 each PO Q4H PRN Sulfamethoxazole/Trimethoprim [Bactrim Ds Tablet] 1 each PO DAILY 08/15/18 Topiramate 1 tab PO BID 08/15/18 Omeprazole 40 mg PO BID #60 capsule. 08/17/18 History of Present Illness History of Present Illness: EUSEBIO CAMPOS is a 57 year old male Patient was admitted for the GI bleed and symptomatic anemia Patient's underwent for the endoscopy and colonoscopy and found the duodenal ulcer Patient seen by the general surgery and put the patient on a PPI Hospital Course Hospital Course: Patient was admitting in the hospital for the GI bleed underwent further endoscopy and colonoscopy and the patient is found a duodenal ulcer Patient hemoglobin remained stable According to the surgery patient is discharged home with the PPI twice a day and follow outpatient also surgical Patient p.o. intake is good on discharge patient's walk in the hallway without any problems Patient also ongoing hip problems currently scheduled for the surgery at [facility] Discussed with the patient and the patient's family member at the bedside regarding the patient's current condition and all findings Avoid all NSAID Continues the PPI twice a day Follow-up [facility] in 2 weeks Follow-up in office in 1 wk Physical Exam Vital Signs: Temp Pulse Resp BP Pulse Ox 100.0 F 84 20 110/61 99 08/17/18 10:00 08/17/18 10:00 08/17/18 10:00 08/17/18 10:00 08/17/18 10:00 Intake & Output 08/16/18 08/17/18 08/18/18 06:59 06:59 06:59 Intake Total 3280 2200 400 Output Total 1900 3025 450 Balance 1380 -825 -50 Weight 110.6 kg 110.9 kg General appearance: PRESENT: no acute distress, well-developed, well-nourished Head exam: PRESENT: atraumatic, normocephalic Eye exam: PRESENT: conjunctiva pink, EOMI, PERRLA. ABSENT: scleral icterus Ear exam: PRESENT: normal external ear exam Mouth exam: PRESENT: moist, tongue midline Neck exam: PRESENT: full ROM. ABSENT: carotid bruit, JVD, lymphadenopathy, thyromegaly Respiratory exam: PRESENT: clear to auscultation ell[place]ott Cardiovascular exam: PRESENT: RRR. ABSENT: diastolic murmur, rubs, systolic murmur Pulses: PRESENT: normal dorsalis pedis pul, +2 pedal pulses bilateral Vascular exam: PRESENT: normal capillary refill GI/Abdominal exam: PRESENT: normal bowel sounds, soft. ABSENT: distended, guarding, mass, organolmegaly, rebound, tenderness Rectal exam: PRESENT: deferred Musculoskeletal exam: PRESENT: ambulatory Neurological exam: PRESENT: alert, awake, oriented to person, oriented to place , oriented to time, oriented to situation, CN II-XII grossly intact. ABSENT: motor sensory deficit Psychiatric exam: PRESENT: appropriate affect, normal mood. ABSENT: homicidal ideation, suicidal ideation Skin exam: PRESENT: dry, intact, warm. ABSENT: cyanosis, rash Results Laboratory Results: 08/16/18 01:14 Impressions: Chest X-Ray 08/15/18 09:17 IMPRESSION: No acute abnormality of the lungs in AP projection. Qualifiers - * PATIENT BEING DISCHARGED WITH ANY OF THE FOLLOWING DIAGNOSIS: No VTE patient discharged on overlapping Therapy?: Yes Plan Time Spent: Greater than 30 Minutes - Discharge home with the stable conditions follow in office in 1 week with repeat the CBC and Chem-7
== END 2018-08-17 15:32 | disposition home or self-care (01) | DRG 378 ==
LOC: ER 08:51 → EH 15:12 → ICU 17:04
PROVIDERS: ADMIT Family Medicine; ATTEND Family Medicine
PROC: 0DB78ZX Excision of Stomach, Pylorus, Via Natural or Artificial Opening Endoscopic, Diagnostic (ICD-10-PCS; principal; 2018-08-16 09:00)
PROC: 0DJD8ZZ Inspection of Lower Intestinal Tract, Via Natural or Artificial Opening Endoscopic (ICD-10-PCS; 2018-08-16 09:00)
PROC: 3E02340 Introduction of Influenza Vaccine into Muscle, Percutaneous Approach (ICD-10-PCS; 2018-08-17)
DX: K26.4 Chronic or unspecified duodenal ulcer with hemorrhage (principal); D62 Acute posthemorrhagic anemia; K29.60 Other gastritis without bleeding; G43.909 Migraine, unspecified, not intractable, without status migrainosus; T84.52XD Infection and inflammatory reaction due to internal left hip prosthesis, subsequent encounter; Z79.2 Long term (current) use of antibiotics; Z88.6 Allergy status to analgesic agent; Z23 Encounter for immunization; Z96.642 Presence of left artificial hip joint
CPT/HCPCS: 36415; 43239; 45378; 71045; 80053; 82272; 84484; 85025; 85027; 86850; 86900; 86901; 88305; 88342; 90471; 90686; 93005; 93010; 96361; 96365; 96366; 96376; 99285; G0008; J0171; J1610; J2310; J2405; J3490; J7030; S0164

== ENCOUNTER 2018-09-12 20:31 | Emergency (ER) | payer OTHER ==
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
[2018-09-12 23:01] VITALS: BP 128/91
== END 2018-09-12 23:01 | disposition home or self-care (01) ==
LOC: ER 20:31
DX: S39.012A Strain of muscle, fascia and tendon of lower back, initial encounter (principal); S29.012A Strain of muscle and tendon of back wall of thorax, initial encounter; V63.5XXA Driver of heavy transport vehicle injured in collision with car, pick-up truck or van in traffic accident, initial encounter; Y93.89 Activity, other specified; M62.830 Muscle spasm of back
CPT/HCPCS: 72070; 72110; 99284

== ENCOUNTER 2018-11-16 02:45 | Emergency (ER) | payer OTHER ==
[2018-11-16 03:39] LABS: ABSOLUTE LYMPHOCYTES (AUTO) 0.7 10^3/uL (0.5-4.7); ABSOLUTE MONOCYTES (AUTO) 0.6 10^3/uL (0.1-1.4); ABSOLUTE NEUT (AUTO) 8.4 10^3/uL (1.7-8.2); BASOPHILS % (AUTO) 0.3 % (0-2); HEMATOCRIT 35.1 % (37.9-51.0); HEMOGLOBIN 11.8 g/dL (13.5-17.0); LYMPHOCYTES % (AUTO) 7.6 % (13-45); MEAN CORPUSCULAR HGB CONC 33.6 g/dL (32.0-36.0); MEAN CORPUSCULAR VOLUME 86 fl (80-97); MONOCYTES % (AUTO) 6.5 % (3-13); PLATELET COUNT 264 10^3/uL (150-450); RED BLOOD COUNT 4.07 10^6/uL (4.35-5.55); RED CELL DISTRIBUTION WIDTH 16.3 % (11.5-14.0); SEGMENTED NEUTROPHILS % (AUTO) 85.6 % (42-78); TOTAL CELLS COUNTED % (AUTO) 100 %; WHITE BLOOD COUNT 9.7 10^3/uL (4.0-10.5)
--- NOTE | 2018-11-16 03:42 | ER Document Report ---
Addendum entered and electronically signed by SHELLY STAFFORD PA-C 11/16/18 06:05: Discharge - Discharge Clinical Impression: Ureteral stone with hydronephrosis, Elevated serum creatinine Condition: Good Disposition: HOME, SELF-CARE Instructions: Kidney Stone ([facility]) Additional Instructions: Please call the urology specialist office today. Please get the soonest appointment available. If you are unable to see the specialist right away and you have worsening symptoms, you are encouraged to return to the emergency department for treatment. Prescriptions: Ondansetron [Zofran Odt 4 mg Tablet] 1 - 2 tab PO Q4H PRN #15 tab.rapdis PRN Reason: For Nausea/Vomiting Oxycodone HCl/Acetaminophen [Percocet 5-325 mg Tablet] 1 - 2 tab PO Q4H PRN #15 tablet PRN Reason: Referrals: AHSAN MORAN MD [Primary Care Provider] - Follow up as needed MAME SALAS MD [[facility] MD] - Follow up tomorrow Original Note: ED General - General Chief Complaint: Flank Pain Stated Complaint: FLANK PAIN Time Seen by Provider: 11/16/18 03:22 Primary Care Provider: AHSAN MORAN MD [Primary Care Provider] - Follow up as needed Mode of Arrival: Medic Information source: Patient TRAVEL OUTSIDE OF THE [place] IN LAST 30 DAYS: No - HPI Patient complains to provider of: Left flank pain and nausea Onset: Yesterday Onset/Duration: Sudden Quality of pain: Sharp, Stabbing Severity: Severe Associated symptoms: denies: Chills, Fever Exacerbated by: Denies Relieved by: Denies Similar symptoms previously: No Recently seen / treated by doctor: No Notes: Patient is a 58-year-old -[place] male coming in today via ambulance with chief complaint of left flank pain. Symptoms evidently started a couple of days ago and were waxing and waning. Evidently prior to arrival the symptoms came back and were intractable and the patient called the ambulance. Prior to arrival he was given 60 mg of Toradol IM and 4 mg of Zofran ODT. Symptoms have abated for the most part. Patient reports no history of kidney stones. - Related Data Allergies/Adverse Reactions: aspirin Adverse Reaction (Verified 08/15/18 09:44) Past Medical History - General Information source: Patient - Social History Smoking Status: Never Smoker Frequency of alcohol use: None Drug Abuse: None Family History: Reviewed & Not Pertinent Patient has suicidal ideation: No Patient has homicidal ideation: No - Past Medical History Cardiac Medical History: Denies: Hx Atrial Fibrillation, Hx Congestive Heart Failure, Hx Coronary Artery Disease, Hx Heart Attack, Hx Hypercholesterolemia, Hx Hypertension, Hx Peripheral Vascular Disease, Hx Pulmonary Embolism, Hx Heart Murmur Pulmonary Medical History: Denies: Hx Asthma, Hx Bronchitis, Hx COPD, Hx Pneumonia, Hx Respiratory Failure, Hx Sleep Apnea, Hx Tuberculosis Neurological Medical History: Denies: Hx Cerebrovascular Accident, Hx Seizures Endocrine Medical History: Denies: Hx Graves' Disease, Hx Hyperthyroidism, Hx Hypothyroidism Renal/ Medical History: Denies: Hx Benign Prostatic Hyperplasia, Hx End Stage Renal Disease, Hx Kidney Stones, Hx Peritoneal Dialysis Malignancy Medical History: Denies Hx Leukemia, Denies Hx Lung Cancer GI Medical History: Denies: Hx Crohn's Disease, Hx Gastroesophageal Reflux Disease, Hx Hiatal Hernia, Hx Irritable Bowel, Hx Liver Failure, Hx Pancreatitis, Hx Ulcer Musculoskeletal Medical History: Reports Hx Arthritis, Denies Hx Fibromyalgia, Denies Hx Multiple Sclerosis, Denies Hx Muscular Dystrophy Psychiatric Medical History: Denies: Hx Bipolar Disorder, Hx Dementia, Hx Depression, Hx Post Traumatic Stress Disorder, Hx Schizophrenia Traumatic Medical History: Denies: Hx Fractures Infectious Medical History: Denies: Hx HIV Past Surgical History: Denies: Hx Appendectomy, Hx Bowel Surgery, Hx Cholecystectomy, Hx Colostomy, Hx Coronary Artery Bypass Graft, Hx Gastric Bypass Surgery, Hx Herniorrhaphy, Hx Pacemaker, Hx Tonsillectomy - Immunizations Hx Diphtheria, Pertussis, Tetanus Vaccination: Yes Review of Systems - Review of Systems Notes: Constitutional: No fevers. No chills. EENT: No eye redness. No eye pain. No ear pain. No sore throat. Cardiovascular: No chest pain. No palpitations. Respiratory: No cough. No shortness of breath. No respiratory distress. Gastrointestinal: Positive left flank pain and nausea. No vomiting or diarrhea Genitourinary: Atraumatic. No lesions. No pain. No discharge. Musculoskeletal: Atraumatic. No swelling. No deformities. Skin: No rash or lesions. Lymphatic: No swollen lymph nodes. Neurologic: No headache. No syncope. Psychiatric: No suicidal or homicidal ideation. Physical Exam - Vital signs Vitals: Temp Pulse Resp BP Pulse Ox 98.5 F 72 15 145/86 H 97 11/16/18 02:58 11/16/18 02:58 11/16/18 02:58 11/16/18 02:58 11/16/18 02:58 - Notes Notes: General: Well-developed, well-nourished. In no acute distress. Non-toxic appearing. Cardiac: Well-perfused. Regular rate and rhythm. No murmurs, rubs, or gallops. Pulmonary: No respiratory distress. No cyanosis. Bilateral lung fiels are clear to auscultation. Abdominal: Non-distended. Non-rigid. Bowels sounds are present in all four quadrants. No guarding or rebound. HEENT: Head is atraumatic. Conjunctivae not reddened. No tearing. PERRL. EOMI. Orbits atraumatic. No periorbital swelling or erythema. Oropharynx is without erythema, swelling, or exudates. Neck: Supple. No adenopathy. No meningismus. Dermatologic: Warm with good turgor. No rash. Atraumatic. Chest: Atraumatic. No chest wall tenderness to palpation. Musculoskeletal: Moves all extremities well. No range of motion deficits. no muscular or joint tenderness. No paraspinal muscle tenderness. no midline spinal tenderness or step-off. Genitourinary: Examination deferred Neurologic: No gross neurologic deficits. Psychiatric: Normal mood. Course - Re-evaluation Re-evalutation: 11/16/18 03:41 Patient is relatively comfortable and is not nauseous. We will go ahead get a stone chaser to see what is going on 11/16/18 05:59 Patient has a 2-3 mm left UVJ stone with mild hydronephrosis. His creatinine is just a little bit above normal range. His pain is well controlled. He is not nauseous. We will have patient follow-up with urology in the next day or 2. We will discharge him home with Percocet and Zofran. - Vital Signs Vital signs: Temp Pulse Resp BP Pulse Ox 98.5 F 72 15 145/86 H 97 11/16/18 02:58 11/16/18 02:58 11/16/18 02:58 11/16/18 02:58 11/16/18 02:58 - Laboratory Result Diagrams: 11/16/18 03:25 11/16/18 03:25 Laboratory results interpreted by me: 11/16/18 11/16/18 11/16/18 03:25 03:25 05:15 RBC 4.07 L Hgb 11.8 L Hct 35.1 L RDW 16.3 H Seg Neutrophils % 85.6 H Lymphocytes % 7.6 L Absolute Neutrophils 8.4 H Chloride 110 H Creatinine 1.48 H Est GFR ( Amer) 59 L Est GFR (Non-Af Amer) 49 L Glucose 111 H ALT 15 L Urine Protein 30 H - Diagnostic Test Radiology reviewed: Reports reviewed Discharge - Discharge Clinical Impression: Ureteral stone with hydronephrosis, Elevated serum creatinine Condition: Good Disposition: HOME, SELF-CARE Instructions: Kidney Stone ([facility]) Additional Instructions: Please call the urology specialist office today. Please get the soonest appointment available. If you are unable to see the specialist right away and you have worsening symptoms, you are encouraged to return to the emergency department for treatment. Prescriptions: Ondansetron [Zofran Odt 4 mg Tablet] 1 - 2 tab PO Q4H PRN #15 tab.rapdis PRN Reason: For Nausea/Vomiting Oxycodone HCl/Acetaminophen [Percocet 5-325 mg Tablet] 1 - 2 tab PO Q4H PRN #15 tablet PRN Reason: Referrals: AHSAN MORAN MD [Primary Care Provider] - Follow up as needed
[2018-11-16 04:00] LABS: ALANINE AMINOTRANSFERASE 15 U/L (21-72); ALKALINE PHOSPHATASE 88 U/L (38-126); ANION GAP 8 (5-19); ASPARTATE AMINO TRANSFERASE 27 U/L (17-59); BILIRUBIN,DIRECT 0.3 mg/dL (0.0-0.4); BILIRUBIN,TOTAL 0.6 mg/dL (0.2-1.3); BLOOD UREA NITROGEN 12 mg/dL (7-20); CALCIUM 8.8 mg/dL (8.4-10.2); CARBON DIOXIDE 24 mmol/L (22-30); CHLORIDE 110 mmol/L (98-107); GLUCOSE 111 mg/dL (75-110); POTASSIUM 3.8 mmol/L (3.6-5.0); SODIUM 142.3 mmol/L (137-145); TOTAL PROTEIN 6.8 g/dL (6.3-8.2)
--- NOTE | 2018-11-16 04:21 | RADIOLOGY REPORT (SQ) ---
EXAM DESCRIPTION: CT ABDOMEN PELVIS WITHOUT IV CONTRAST COMPLETED DATE/TME: 11/16/2018 03:41 CLINICAL HISTORY: 58 years, Male, L FLANK PAIN W/ NAUSEA COMPARISON: None. TECHNIQUE: Unknown Images stored on PACS. All CT scanners at this facility use dose modulation, iterative reconstruction, and/or weight based dosing when appropriate to reduce radiation dose to as low as reasonably achievable (ALARA). [facility]: Dose Right [facility]: CareDose [facility]: Dose Right [facility]: Teradose 4D [facility]: [employer] LIMITATIONS: None. FINDINGS: Limited evaluation of the lung bases is unremarkable. Osseous structures are grossly intact. Scattered hypodensities throughout the liver likely reflecting multiple cysts. The spleen, adrenal glands, pancreas, right kidney are unremarkable. The gallbladder is present. Nonobstructing 2 mm left renal calculus. Mild/moderate left-sided hydronephrosis and hydroureter with left perinephric/periureteral inflammatory change, secondary to an approximately 2 to 3 mm left UVJ calculus. Evaluation of the pelvis is limited secondary to streak artifact from a left hip prosthesis. Normal appendix. Urinary bladder incompletely distended. No gross evidence for bowel obstruction. IMPRESSION: [id number] left-sided hydronephrosis and hydroureter with surrounding inflammation secondary to an approximately 2 to 3 mm left UVJ calculus. Other nonobstructing left renal calculi are present. Multiple hepatic and renal cysts. TECHNICAL DOCUMENTATION: Quality ID # 436: Final reports with documentation of one or more dose reduction techniques (e.g., Automated exposure control, adjustment of the mA and/or kV according to patient size, use of iterative reconstruction technique) copyright 2011 [employer]- All Rights Reserved
[2018-11-16 05:29] LABS: APPEARANCE,URINE CLOUDY; BILIRUBIN,URINE NEGATIVE (NEGATIVE); COLOR,URINE YELLOW; GLUCOSE, URINE NEGATIVE (NEGATIVE); KETONES,URINE NEGATIVE (NEGATIVE); LEUKOCYTE ESTERASE,URINE NEGATIVE (NEGATIVE); NITRITE,URINE NEGATIVE (NEGATIVE); PROTEIN,URINE 30 mg/dL (NEGATIVE); URINE SPECIFIC GRAVITY 1.014; UROBILINOGEN,URINE NEGATIVE mg/dL (<2.0)
[2018-11-16 06:27] VITALS: BP 131/77
== END 2018-11-16 06:27 | disposition home or self-care (01) ==
LOC: ER 02:45
DX: N13.2 Hydronephrosis with renal and ureteral calculous obstruction (principal); R79.89 Other specified abnormal findings of blood chemistry; R10.9 Unspecified abdominal pain; R11.0 Nausea; Z88.6 Allergy status to analgesic agent
CPT/HCPCS: 36415; 74176; 80053; 81001; 85025; 99284

== ENCOUNTER 2019-10-03 11:39 | Emergency (ER) | payer OTHER ==
--- NOTE | 2019-10-03 12:28 | ER Document Report ---
ED Medical Screen (RME) - General Chief Complaint: Arm Pain Stated Complaint: LEFT ARM PAIN Time Seen by Provider: 10/03/19 12:18 Primary Care Provider: AHSAN MORAN MD [Primary Care Provider] - Follow up as needed Mode of Arrival: Ambulatory Information source: Patient TRAVEL OUTSIDE OF THE [place] IN LAST 30 DAYS: No - HPI Notes: 10/03/19 12:30 58-year-old male presents emergency room for evaluation of PICC line in his left arm which was placed for him does receive IV vancomycin. Patient receives IV antibiotics to treat a left hip infection. Patient is receiving 6 weeks of vancomycin through the PICC line in which then he will have part 2 of his left hip surgery, with hopes that the infection has cleared. Patient states that the PICC line is leaking at the port site, is unable to be flushed. His primary care provider sent him over for evaluation requested CBC CMP, ESR and Vanco trough to be ordered as well as possible PICC line placement. Patient is not having any complaints of pain at the PICC site. Denies any history of DVTs or PEs. denies fevers, chills, chest pain,palpitations, shortness of breath, dyspnea, nausea, vomiting, diarrhea, abdominal pain, hematuria,blurred vision, double vision, loss of vision, speech changes, LH, dizziness, syncope, headaches, neck pain, weakness, bowel or bladder dysfunction, saddle anesthesia, numbness or tingling in bilateral upper or lower extremities equally, muscle paralysis, weakness in bilateral upper or lower extremities equally or rash. I have greeted and performed a rapid initial assessment of this patient. A comprehensive ED assessment and evaluation of the patient, analysis of test results and completion of the medical decision making process will be conducted by additional ED providers. Labs have been placed. Charge nurse, Melinda Trejo, has been contacted to help facilitate consult by interventional radiology of PICC line. PHYSICAL EXAMINATION: GENERAL: Well-appearing, well-nourished and in no acute distress. HEAD: Atraumatic, normocephalic. NECK: Normal range of motion CV: s1, s2 regular LUNGS: No respiratory distress Musculoskeletal: Normal range of motion. Left upper extremity with PICC placement without any erythema, induration, warmth to touch around insertion site or upper arm. Radial pulses +2 in bilateral upper extremities equally. [employer] +2 in bilateral upper extremities equally NEUROLOGICAL: Normal speech, normal gait. SKIN: Warm, Dry, normal turgor, no rashes or lesions noted. - Related Data Allergies/Adverse Reactions: aspirin Adverse Reaction (Verified 08/15/18 09:44) Past Medical History - Past Medical History Cardiac Medical History: Denies: Hx Atrial Fibrillation, Hx Congestive Heart Failure, Hx Coronary Artery Disease, Hx Heart Attack, Hx Hypercholesterolemia, Hx Hypertension, Hx Peripheral Vascular Disease, Hx Pulmonary Embolism, Hx Heart Murmur Pulmonary Medical History: Denies: Hx Asthma, Hx Bronchitis, Hx COPD, Hx Pneumonia, Hx Respiratory Failure, Hx Sleep Apnea, Hx Tuberculosis Neurological Medical History: Denies: Hx Cerebrovascular Accident, Hx Seizures, Hx Parkinson's Disease Endocrine Medical History: Denies: Hx Graves' Disease, Hx Hyperthyroidism, Hx Hypothyroidism Renal/ Medical History: Denies: Hx Benign Prostatic Hyperplasia, Hx End Stage Renal Disease, Hx Kidney Stones, Hx Peritoneal Dialysis Malignancy Medical History: Denies Hx Leukemia, Denies Hx Lung Cancer GI Medical History: Denies: Hx Crohn's Disease, Hx Gastroesophageal Reflux Disease, Hx Hiatal Hernia, Hx Irritable Bowel, Hx Liver Failure, Hx Pancreatitis, Hx Ulcer Musculoskeltal Medical History: Reports Hx Arthritis, Denies Hx Fibromyalgia, Denies Hx Multiple Sclerosis, Denies Hx Muscular Dystrophy, Denies Hx Systemic Lupus Erythematosus Psychiatric Medical History: Denies: Hx Bipolar Disorder, Hx Dementia, Hx Depression, Hx Post Traumatic Stress Disorder, Hx Schizophrenia Traumatic Medical History: Denies: Hx Fractures Infectious Medical History: Denies: Hx HIV Past Surgical History: Denies: Hx Appendectomy, Hx Bowel Surgery, Hx Cholecystectomy, Hx Colostomy, Hx Coronary Artery Bypass Graft, Hx Gastric Bypass Surgery, Hx Herniorrhaphy, Hx Pacemaker, Hx Tonsillectomy - Immunizations Hx Diphtheria, Pertussis, Tetanus Vaccination: Yes Doctor's Discharge - Discharge Referrals: AHSAN MORAN MD [Primary Care Provider] - Follow up as needed
[2019-10-03 12:35] VITALS: BP 118/79
[2019-10-03 13:08] LABS: ABSOLUTE BASOPHILS # (AUTO) 0.1 10^3/uL (0.0-0.2); ABSOLUTE EOSINOPHILS # (AUTO) 0.4 10^3/uL (0.0-0.6); ABSOLUTE LYMPHOCYTES (AUTO) 1.6 10^3/uL (0.5-4.7); ABSOLUTE MONOCYTES (AUTO) 0.6 10^3/uL (0.1-1.4); ABSOLUTE NEUT (AUTO) 2.1 10^3/uL (1.7-8.2); BASOPHILS % (AUTO) 1.4 % (0-2); EOSINOPHILS % (AUTO) 7.6 % (0-6); HEMATOCRIT 32.2 % (37.9-51.0); HEMOGLOBIN 10.5 g/dL (13.5-17.0); LYMPHOCYTES % (AUTO) 33.6 % (13-45); MEAN CORPUSCULAR HEMOGLOBIN 29.9 pg (27.0-33.4); MEAN CORPUSCULAR HGB CONC 32.5 g/dL (32.0-36.0); MEAN CORPUSCULAR VOLUME 92 fl (80-97); MONOCYTES % (AUTO) 11.9 % (3-13); PLATELET COUNT 419 10^3/uL (150-450); RED CELL DISTRIBUTION WIDTH 14.6 % (11.5-14.0); SEGMENTED NEUTROPHILS % (AUTO) 45.5 % (42-78); TOTAL CELLS COUNTED % (AUTO) 100 %; WHITE BLOOD COUNT 4.6 10^3/uL (4.0-10.5)
[2019-10-03 13:29] LABS: ALBUMIN 3.7 g/dL (3.5-5.0); ALKALINE PHOSPHATASE 99 U/L (38-126); ANION GAP 7 (5-19); ASPARTATE AMINO TRANSFERASE 30 U/L (17-59); BILIRUBIN,DIRECT 0.2 mg/dL (0.0-0.4); BILIRUBIN,TOTAL 0.3 mg/dL (0.2-1.3); BLOOD UREA NITROGEN 14 mg/dL (7-20); CALCIUM 9.1 mg/dL (8.4-10.2); CARBON DIOXIDE 26 mmol/L (22-30); CHLORIDE 107 mmol/L (98-107); GLUCOSE 79 mg/dL (75-110); TOTAL PROTEIN 7.4 g/dL (6.3-8.2)
[2019-10-03 13:34] LABS: VANCOMYCIN,TROUGH < 5.0 ug/mL (5.0-20.0)
[2019-10-03 14:00] LABS: ERYTHROCYTE SEDIMENTATION RATE 61 mm/hr (0-20)
--- NOTE | 2019-10-03 14:58 | RADIOLOGY REPORT (SQ) ---
EXAM DESCRIPTION: PICC LINE REPLACEMENT; FLUORO/CV PLACEMENT COMPLETED DATE/TIME: 10/03/2019 2:26 pm REASON FOR STUDY: occluded PICC; PICC REPLACEMENT-OCCLUDED COMPARISON: None. FLUOROSCOPY TIME: 1 minutes 12 seconds 1 images saved to PACS. TECHNIQUE: Fluoroscopic and ultrasound guided PICC placement. LIMITATIONS: None. PROCEDURE: After written consent and assessment were obtained, the patient was brought into the fluo roscopy room and placed supine on the table. Ultrasound evaluation of potential access sites were per formed. After successfully identifying a patent left basilic vein, the left arm was prepped and drape d in a sterile fashion along with the ultrasound probe. The entry site was anesthetized with 1% lidoc yahir. A 21 gauge 7 cm needle was advanced through the skin and into the basilic vein under live ultra sound guidance. An ultrasound image was saved to PACS confirming access site. A .018 guide wire was then inserted through the needle and into the venous system. The needle was then removed and an 11 b lade scalpel was used to make a 1cm skin incision. A 5 fr peel-away sheath was advanced over the wir e and into the venous system. A measurement was then made using the existing wire and live fluoroscop ic guidance. The wire was then removed and trimmed. The PICC was advanced through the peel-away sheat h and into the venous system. The peel-away sheath was removed and the catheter was adhered to the pa tients arm with a stat lock. The catheter was then aspirated and flushed and a sterile bandage was pl aced over the access site. A fluoroscopic spot image was saved to PACS confirming the catheter tip w ithin the superior vena cava. IMPRESSION: SUCCESSFUL PLACEMENT OF A 5 FR DUAL LUMEN 52 CM PICC IN THE LEFT BASILIC VEIN. COMMENT: Patient medication list reviewed: Yes- Quality ID# 130:Eligible professional attests to doc umenting in the medical record they obtained, updated, or reviewed the patient's current medications. . Quality ID 145: Final reports for procedures using fluoroscopy that document radiation exposure kelvin nolberto, or exposure time and number of fluorographic images (if radiation exposure indices are not avail able) Quality ID #76: The patient was prepped and draped using maximum sterile barrier technique including cap, mask, sterile gown, sterile gloves, a large sterile sheet, hand hygiene, and 2% Chlorhexidine fo r cutaneous antisepsis. When ultrasound is used, sterile ultrasound techniques are followed requiring sterile gel and sterile probes. TECHNICAL DOCUMENTATION: JOB ID: [id number] [employer]- All Rights Reserved rev-02/09 Reading location - IP[facility]workstation name: [email or web address]
--- NOTE | 2019-10-03 15:06 | ER Document Report ---
ED General - General Chief Complaint: Arm Problem Stated Complaint: LEFT ARM PAIN Time Seen by Provider: 10/03/19 12:18 Primary Care Provider: AHSAN MORAN MD [Primary Care Provider] - Follow up as needed Mode of Arrival: Ambulatory Notes: CHIEF COMPLAINT: PICC line replacement HPI: 58-year-old male presenting to the emergency department for PICC line replacement. States his PICC line became occluded. Patient is on vancomycin IV for 6 weeks for a left hip infection. Patient reports no fevers or other complaints at this time ROS: See HPI - all other systems were reviewed and are otherwise negative Constitutional: no fever Eyes: no drainage, no blurred vision ENT: no runny nose, no sore throat Cardiovascular: no chest pain Resp: no SOB, no cough GI: no vomiting, no diarrhea, no abdominal pain : no dysuria Integumentary: no rash Allergy: no hives Musculoskeletal: no extremity pain or swelling Neurological: no numbness/tingling, no weakness MEDICATIONS: I agree with the patient medications as charted by the RN. ALLERGIES: I agree with the allergies as charted by the RN. PAST MEDICAL HISTORY/PAST SURGICAL HISTORY: Reviewed and agree as charted by RN. SOCIAL HISTORY: Reviewed and agree as charted by RN. FAMILY HISTORY: No significant familial comorbid conditions directly related to patient complaint EXAM: Reviewed vital signs as charted by RN. CONSTITUTIONAL: Alert and oriented and responds appropriately to questions. Well-appearing; well-nourished HEAD: Normocephalic; atraumatic EYES: Conjunctivae clear, sclerae non-icteric ENT: normal nose; no rhinorrhea; moist mucous membranes; pharynx without lesions noted NECK: Supple without meningismus CARD: RRR; no murmurs, no clicks, no rubs, no gallops; symmetric distal pulses RESP: Normal chest excursion without splinting or tachypnea; breath sounds clear and equal bilaterally; no wheezes, no rhonchi, no rales ABD/GI: non-distended BACK: The back appears normal EXT: Normal ROM in all joints; non-tender to palpation; no cyanosis, no effusions, no edema. PIC line in the left upper extremity present without blood at the site SKIN: Normal color for age and race; warm; dry; good turgor; no acute lesions noted NEURO: Moves all extremities equally; Motor and sensory function intact PSYCH: The patient's mood and manner are appropriate. Grooming and personal hygiene are appropriate. MDM: 58-year-old male presenting for PICC line replacement, this was done by interventional radiology and placement was confirmed. Will discharge home to follow-up with PCP. Patient lab work ordered by physician does not show acute emergent abnormalities or actionable abnormalities at this time Guidance Fluoroscopy 10/03/19 00:00 IMPRESSION: SUCCESSFUL PLACEMENT OF A 5 FR DUAL LUMEN 52 CM PICC IN THE LEFT BASILIC VEIN. PICC Line Exchange 10/03/19 00:00 IMPRESSION: SUCCESSFUL PLACEMENT OF A 5 FR DUAL LUMEN 52 CM PICC IN THE LEFT BASILIC VEIN. TRAVEL OUTSIDE OF THE [place] IN LAST 30 DAYS: No - Related Data Allergies/Adverse Reactions: aspirin Adverse Reaction (Verified 08/15/18 09:44) Past Medical History - General Information source: Patient - Social History Smoking Status: Unknown if Ever Smoked Family History: Reviewed & Not Pertinent Patient has suicidal ideation: No Patient has homicidal ideation: No - Past Medical History Cardiac Medical History: Denies: Hx Atrial Fibrillation, Hx Congestive Heart Failure, Hx Coronary Artery Disease, Hx Heart Attack, Hx Hypercholesterolemia, Hx Hypertension, Hx Peripheral Vascular Disease, Hx Pulmonary Embolism, Hx Heart Murmur Pulmonary Medical History: Denies: Hx Asthma, Hx Bronchitis, Hx COPD, Hx Pneumonia, Hx Respiratory Failure, Hx Sleep Apnea, Hx Tuberculosis Neurological Medical History: Denies: Hx Cerebrovascular Accident, Hx Seizures, Hx Parkinson's Disease Endocrine Medical History: Denies: Hx Graves' Disease, Hx Hyperthyroidism, Hx Hypothyroidism Renal/ Medical History: Denies: Hx Benign Prostatic Hyperplasia, Hx End Stage Renal Disease, Hx Kidney Stones, Hx Peritoneal Dialysis Malignancy Medical History: Denies Hx Leukemia, Denies Hx Lung Cancer GI Medical History: Denies: Hx Crohn's Disease, Hx Gastroesophageal Reflux Disease, Hx Hiatal Hernia, Hx Irritable Bowel, Hx Liver Failure, Hx Pancreatitis, Hx Ulcer Musculoskeletal Medical History: Reports Hx Arthritis, Denies Hx Fibromyalgia, Denies Hx Multiple Sclerosis, Denies Hx Muscular Dystrophy, Denies Hx Systemic Lupus Erythematosus Psychiatric Medical History: Denies: Hx Bipolar Disorder, Hx Dementia, Hx Depression, Hx Post Traumatic Stress Disorder, Hx Schizophrenia Traumatic Medical History: Denies: Hx Fractures Infectious Medical History: Denies: Hx HIV Past Surgical History: Denies: Hx Appendectomy, Hx Bowel Surgery, Hx Joleen cystectomy, Hx Colostomy, Hx Coronary Artery Bypass Graft, Hx Gastric Bypass Surgery, Hx Herniorrhaphy, Hx Pacemaker, Hx Tonsillectomy - Immunizations Hx Diphtheria, Pertussis, Tetanus Vaccination: Yes Physical Exam - Vital signs Vitals: Temp Pulse Resp BP 97.8 F 91 16 118/79 10/03/19 12:34 10/03/19 12:34 10/03/19 12:34 10/03/19 12:34 Course - Vital Signs Vital signs: Temp Pulse Resp BP Pulse Ox 97.8 F 91 16 118/79 10/03/19 12:34 10/03/19 12:34 10/03/19 12:34 10/03/19 12:34 - Laboratory Result Diagrams: 10/03/19 12:50 10/03/19 12:50 Laboratory results interpreted by me: 10/03/19 10/03/19 12:50 12:50 RBC 3.50 L Hgb 10.5 L Hct 32.2 L RDW 14.6 H Eos % (Auto) 7.6 H ESR 61 H Vancomycin Trough < 5.0 L Discharge - Discharge Clinical Impression: Status post PICC central line placement Condition: Stable Disposition: HOME, SELF-CARE Additional Instructions: Follow-up with your primary care provider for further evaluation and management Referrals: AHSAN MORAN MD [Primary Care Provider] - Follow up as needed
== END 2019-10-03 15:31 | disposition home or self-care (01) ==
LOC: ER 11:39
DX: T82.898A Other specified complication of vascular prosthetic devices, implants and grafts, initial encounter (principal); M79.602 Pain in left arm; Y84.6 Urinary catheterization as the cause of abnormal reaction of the patient, or of later complication, without mention of misadventure at the time of the procedure
CPT/HCPCS: 36591; 99283; 36415; 85025; 85652; 80053; 80202; 36584; 77001; C1769; J1642